=== PATIENT | female | born 1990 | race Caucasian/White ===

== ENCOUNTER 2020-05-10 18:56 | Emergency (ER) | payer MEDICAID, SELFPAY ==
[~2020-05-10] VITALS: Ht 147.3 cm; Wt 59.1 kg
[~2020-05-10 18:56] MED LIST: DEPAKOTE; SEROQUEL; ZOLOFT
[2020-05-10] MEDS ORDERED: LURA60TA PO (19:08)
[2020-05-10] MEDS ORDERED: SERT100T12 PO (19:08)
[2020-05-10] MEDS ORDERED: AMIT75 PO (19:08)
[2020-05-10] MEDS ORDERED: CLON.5 PO (19:08)
[2020-05-10 20:49] VITALS: BP 75/80
== END 2020-05-10 20:50 | disposition home or self-care (01) ==
LOC: EMS 18:56
DX: R45.851 Suicidal ideations (principal); F11.90 Opioid use, unspecified, uncomplicated; Z59.0 Homelessness; F17.210 Nicotine dependence, cigarettes, uncomplicated; F15.90 Other stimulant use, unspecified, uncomplicated; F12.90 Cannabis use, unspecified, uncomplicated; F32.9 Major depressive disorder, single episode, unspecified; Z91.013 Allergy to seafood
CPT/HCPCS: Z7502